=== PATIENT | male | born 1965 ===

== ENCOUNTER 2018-01-29 08:02 | Outpatient (CLI) | payer OTHER ==
[~2018-01-29] VITALS: Ht 172.7 cm; Wt 83.9 kg
== END 2018-01-29 08:20 | disposition home or self-care (01) ==
LOC: OFIC 805 08:02
DX: J03.80 Acute tonsillitis due to other specified organisms (principal); K21.9 Gastro-esophageal reflux disease without esophagitis; R07.0 Pain in throat

== ENCOUNTER 2018-01-29 10:26 | Outpatient (CLI) | payer OTHER | END 2018-01-29 10:31 | disposition home or self-care (01) | LOC: LAB 10:26 | DX: J03.90 Acute tonsillitis, unspecified (principal) ==

== ENCOUNTER 2018-02-06 08:21 | Outpatient (CLI) | payer OTHER | END 2018-02-06 08:40 | disposition home or self-care (01) | LOC: OFIC 805 08:21 | DX: J03.80 Acute tonsillitis due to other specified organisms (principal); K21.9 Gastro-esophageal reflux disease without esophagitis; R07.0 Pain in throat ==